=== PATIENT | male | born 1985 | race Caucasian/White ===

== ENCOUNTER 2024-10-17 00:08 | Emergency (ER) | payer BC, SELFPAY ==
[2024-10-17 00:10] VITALS: BP 133/78
--- NOTE | 2024-10-17 00:58 | ED.GENMED ---
History of Present Illness
General
Chief Complaint: Crisis Evaluation
Source: patient
Exam Limitations: none
Time Seen by Provider: 10/17/24 00:20
Nursing documentation reviewed up to this point in time: agreed with
History of Present Illness
History of Present Illness:
39-year-old male presents with nausea vomiting after taking Perc 30s-2 a day for the past few days he believes he poisoned himself, denies alcohol or other drugs, does not sound like they were prescribed to him, triage reports that this was a
suicide attempt, this is not confirmed through my history, he mainly states he feels nauseous now, no jaundice no prior episodes
Past History
Past History
ED Past Medical History: None
ED Past Surgical History: None
Social History
Tobacco: Non-smoker
Alcohol: Occasional
Drug: Narcotics
Living: with family
Review of Systems
Review of Systems
All Other Systems: Not applicable
Respiratory: Denies trouble breathing
Cardiac: Reports no symptoms
ABD/GI: Reports abdominal pain and nausea
Musculoskeletal: Reports no symptoms
Psychiatric: Reports depression, anxiety and suicidal
Phy Exam
Physical Exam
Physical Exam:
Physical Exam
General: 39 male looks uncomfortable but nontoxic,
Neck: No jaundice
Heart: s1/s2 regular rate and rhythm, no murmur. equal radial pulses.
Lungs: no acute respiratory distress. clear bilaterally
Abdomen: Mild epigastric tender
Neuro: alert and oriented. no focal neurological deficits
Skin: no rash
Psychiatric: well kept. interactive and cooperative
Extremities: no edema.
Course
Orders/Labs/Results
Orders:
Orders
10/17/24 00:20
Urine Drug Abuse Screen Urgent
10/17/24 00:21
Crisis Consult Routine
Reason for Consult: od
10/17/24 00:50
Ondansetron Injectable [Zofran] 4 mg .ROUTE .STK-MED ONE
10/17/24 00:52
0.9% Sodium Chloride 1000 ml [Nss] 2,000 ml IV BOLUS
Ondansetron Injectable [Zofran] 4 mg IV NOW STA
Pantoprazole [Protonix IV] 40 mg IV NOW STA
10/17/24 01:22
Acetaminophen Urgent
Alcohol Urgent
Complete Blood Count/With Diff Urgent
Comprehensive Metabolic Panel Urgent
Salicylate Urgent
10/17/24 04:04
Lorazepam [Ativan] 1 mg IV NOW STA
Abnormal Lab Results
10/17/24
01:22
RBC 4.52 L 10^6/uL
(4.70-6.10)
MCH 31.6 H pg
(27.0-31.0)
RDW 11.4 L %
(11.5-14.5)
Absolute Lymphs (auto) 0.9 L 10^3/uL
(1.2-3.4)
Neutrophils % 76.0 H %
(42.2-75.2)
Lymphocytes % 15.3 L %
(20.5-51.1)
Glucose 123 H mg/dl
(70-99)
Total Bilirubin 1.6 H mg/dl
(0.2-1.3)
Salicylates < 1.0 L mg/dl
(2.0-20.0)
Acetaminophen < 10 L ug/ml
(10-30)
10/17/24 01:22
10/17/24 01:22
Vital Signs
Initial and Last Documented VS:
Initial Vital Signs
Temp Pulse Resp BP Pulse Ox
98.0 F 61 16 133/78 96
10/17/24 00:10 10/17/24 00:10 10/17/24 00:10 10/17/24 00:10 10/17/24 00:10
Last Documented Vital Signs
Temp Pulse Resp BP Pulse Ox
98.0 F 59 13 116/72 98
10/17/24 00:10 10/17/24 03:00 10/17/24 02:30 10/17/24 03:00 10/17/24 03:59
MDM/Problems Addressed
Differential Diagnosis Includes:
Toxic ingestion acetaminophen ingestion alcohol gastritis other abdominal,
MDM/Problems Addressed:
Nausea vomiting
*Pulse Oximetry
Patient hypoxic: no
*Critical Care Note
Total Time (30-74mins, 75-104mins- exclusive of procedures): Not Applicable
Update Note
Update Note:
Update history is suspect, will check electrolytes salicylate acetaminophen treat symptomatically
2:15 AM labs are noted telepsych evaluation pending
4:38 AM patient cooperative comfortable appearing, seen by telepsychiatry, outpatient follow-up recommended
Patient is abdomen soft nontender, he is drinking nona johnnie
ED Attending Note
-
Portions of this chart may have been created with voice recognition software.� Occasional wrong word or��sound alike� substitutions may have occurred due to the inherent limitations of voice recognition software.
Discharge Plan
Departure
Patient Disposition: Home (Routine Discharge)
Date of Disposition: 10/17/24
Time of Disposition: 04:39
Patient with high blood pressure during this ER visit?: No
Condition: Good
Discharge Problem:
Anxiety
Instructions: Anxiety, Adult (DC)
Prescriptions:
No Action
Vistaril
75 mg PO HS
Zoloft
100 mg PO DAILY
risperidone
8 mg PO DAILY
Referrals:
NONE,* [Family Provider, Internal Medicine]
Activity Restrictions/Additional Instructions:
Only take medications that are prescribed to you
Follow-up with Abelino Geronimo
Interventions
Interventions:
*Risk Screen - Suicide Last Done: 10/17/24 00:10
*General Assessment Last Done: 10/17/24 01:52
*Neglect/Abuse Screening Last Done: 10/17/24 01:52
*ED- Fall Risk Assessment Last Done: 10/17/24 01:52
*ED COVID-19 Vaccine History Last Done: 10/17/24 03:59
ED-Psychological Assessment Last Done: 10/17/24 01:50
Discharge Date and Time
Print Language: STATELESS
[2024-10-17] MEDS: ZOFRAN 4 MG IV (01:18)
[2024-10-17] MEDS: NSS 2000 IV (01:18)
[2024-10-17 01:21] VITALS: BP 128/75
[2024-10-17 01:31] LABS: % Basophils 0.5 % (0-2); % Eosinophils 0.2 % (0-6); % Immature Granulocytes 0.2 % (0-0.5); % Lymphocytes 15.3 % (20.5-51.1); % Monocytes 7.8 % (1.7-9.3); Absolute Lymphocytes 0.9 10^3/uL (1.2-3.4); Absolute Monocytes 0.5 10^3/uL (0.1-0.6); Absolute Neutrophils 4.5 10^3/uL (1.4-6.5); Hematocrit 39.4 % (39.0-52.0); Hemoglobin 14.3 g/dL (13.0-18.0); Mean Corp Hgb Conc. 36.3 g/dL (33.0-37.0); Mean Corpuscular Hgb 31.6 pg (27.0-31.0); Mean Corpuscular Volume 87.2 fL (80.0-94.0); Mean Platelet Volume 9.8 fL (7.4-10.4); Nucleated Red Blood Cells % 0 % (-); Platelet Count 186 10^3/uL (130-400); Red Blood Cell Count 4.52 10^6/uL (4.70-6.10); Red Cell Dist. Width 11.4 % (11.5-14.5); White Blood Cell Count 5.9 10^3/uL (4.8-10.8)
[2024-10-17] MEDS: PROTONIX IV 40 MG IV (01:32)
[2024-10-17 01:50] LABS: ALT (SGPT) 19 U/L (0-50); AST (SGOT) 20 U/L (17-59); Acetaminophen < 10 ug/ml (10-30); Albumin 4.9 g/dl (3.5-5.0); Alkaline Phosphatase 43 U/L (38-126); Blood Urea Nitrogen 13 mg/dl (9-20); Calcium 9.8 mg/dl (8.4-10.2); Carbon Dioxide 28 mmol/L (22-30); Chloride 104 mmol/L (98-107); Glucose 123 mg/dl (70-99); Potassium 4.1 mmol/L (3.5-5.1); Salicylate < 1.0 mg/dl (2.0-20.0); Sodium 138 mmol/L (135-145); Total Bilirubin 1.6 mg/dl (0.2-1.3); Total Protein 7.5 g/dl (6.3-8.2); eGFR > 60.00
[2024-10-17 01:53] VITALS: BMI 28.1
[2024-10-17 01:53] LABS: Alcohol None Detected
[2024-10-17 02:00] VITALS: BP 125/70
[2024-10-17 03:00] VITALS: BP 116/72
[2024-10-17] MEDS: ATIVAN 1 MG IV (04:08)
== END 2024-10-17 05:30 | disposition home or self-care (01) ==
LOC: EMR 00:08
PROVIDERS: EMERGENCY PHYSICIAN Emergency Medicine
DX: F41.9 Anxiety disorder, unspecified (principal); F32.9 Major depressive disorder, single episode, unspecified; F11.20 Opioid dependence, uncomplicated; R11.2 Nausea with vomiting, unspecified
CPT/HCPCS: 96374; 96375; 96361; 99284; 80053; 80143; 80179; 82077; 85025

== ENCOUNTER 2024-10-31 04:30 | Emergency (ER) | payer BC, SELFPAY ==
[2024-10-31 04:32] VITALS: BP 130/80
[2024-10-31 04:43] VITALS: BMI 28.0
[2024-10-31] MEDS: ZOFRAN 4 MG IV (05:20)
[2024-10-31] MEDS: NSS 1000 IV (05:20)
[2024-10-31 05:30] LABS: % Basophils 0.7 % (0-2); % Eosinophils 0.5 % (0-6); % Immature Granulocytes 0.2 % (0-0.5); % Lymphocytes 16.8 % (20.5-51.1); % Monocytes 8.8 % (1.7-9.3); Absolute Lymphocytes 0.9 10^3/uL (1.2-3.4); Absolute Monocytes 0.5 10^3/uL (0.1-0.6); Absolute Neutrophils 4.1 10^3/uL (1.4-6.5); Hematocrit 38.6 % (39.0-52.0); Hemoglobin 14.1 g/dL (13.0-18.0); Mean Corp Hgb Conc. 36.5 g/dL (33.0-37.0); Mean Corpuscular Hgb 31.8 pg (27.0-31.0); Mean Corpuscular Volume 86.9 fL (80.0-94.0); Mean Platelet Volume 9.3 fL (7.4-10.4); Nucleated Red Blood Cells % 0 % (-); Platelet Count 193 10^3/uL (130-400); Red Blood Cell Count 4.44 10^6/uL (4.70-6.10); Red Cell Dist. Width 11.5 % (11.5-14.5); White Blood Cell Count 5.6 10^3/uL (4.8-10.8)
[2024-10-31 05:50] LABS: ALT (SGPT) 32 U/L (0-50); AST (SGOT) 45 U/L (17-59); Albumin 4.4 g/dl (3.5-5.0); Alkaline Phosphatase 38 U/L (38-126); Blood Urea Nitrogen 14 mg/dl (9-20); Calcium 9.9 mg/dl (8.4-10.2); Carbon Dioxide 26 mmol/L (22-30); Chloride 107 mmol/L (98-107); Estimated Creatinine Clearance 107 ml/min; Glucose 122 mg/dl (70-99); Lipase 47 U/L (23-300); Sodium 140 mmol/L (135-145); Total Bilirubin 1.1 mg/dl (0.2-1.3); eGFR > 60.00
--- NOTE | 2024-10-31 06:10 | ED.GENMED ---
History of Present Illness
General
Chief Complaint: Vomiting Blood
Source: patient
Exam Limitations: none
Time Seen by Provider: 10/31/24 04:54
History of Present Illness
History of Present Illness:
Note:
CHIEF COMPLAINT(S)
Vomiting with blood.
HISTORY OF PRESENT ILLNESS
The patient is a 39-year-old male who presented with vomiting blood. He reports that the vomiting occurs with anything he eats or drinks, stating, 'It just comes right back up with blood.' The patient describes his entire stomach as feeling
constantly painful, saying it feels '.' He states he has not taken any medications for this condition. He notes that he is unable to go to the bathroom due to everything coming back up as vomit. The patient is concerned about the blood in his
vomit, which has ranged from light-colored to dark-colored, indicating a mix of fresh and old blood.
SOCIAL HISTORY
The patient denies smoking cigarettes. He also denies alcohol use or marijuana.
PLAN
The plan includes administering Zofran (an anti-nausea medication) to manage the patient�s nausea and vomiting. A blood test will be conducted to further evaluate the patient�s condition. IV access will be established for treatment.
DIFFERENTIAL DIAGNOSIS
The Differential Diagnosis includes, in no particular order, and is not limited to:
1. Gastrointestinal bleeding
2. Peptic ulcer disease
3. Gastritis
4. Esophageal varices
5. Samara-Sandoval tear
6. Gastroesophageal reflux disease (GERD)
7. Esophageal cancer
8. Gastric cancer
9. Hemorrhagic gastritis
10. Boerhaave syndrome
CARE-UPDATE
10/31/24 - 06:09
Patient requested medication for sleep; plan to administer Benadryl along with Reglan for vomiting management. Abdomen exam reveals softness and non-tenderness, with no hematemesis observed. Hemoglobin levels are normal, and vital signs remain
stable. Arrangements will be made for a follow-up appointment with GI for a possible endoscopy.
Disposition:
SUMMARY OF ENCOUNTER
The patient, a 39-year-old male, was evaluated in the emergency department for vomiting accompanied by blood. He reported that any food or drink intake resulted in vomiting, which contained blood. He described his stomach as consistently painful.
Medications had not been taken prior to the visit. The focus of management was to alleviate the symptoms while further diagnostic steps were considered.
EMERGENCY TREATMENTS ADMINISTERED
The patient was administered Zofran to manage nausea and vomiting.
PLAN
In addition to immediate symptom management with Zofran, further evaluation with a blood test was planned. IV access was established for potential treatments. The patient requested medication for sleep, and Benadryl was planned to be administered.
INDEPENDENT INTERPRETATION OF TESTS
My independent interpretation of the hemoglobin test indicates normal levels, suggesting that the patients current bleeding has not impacted hemoglobin significantly.
FOLLOW-UP INSTRUCTIONS
Arrangements will be made for a follow-up appointment with a gastrointestinal specialist for a possible endoscopy.
MEDICATION RECONCILIATION
Zofran was administered to manage nausea and vomiting. Prescription for additional antiemetic management included reglan.
MEDICAL DECISION MAKING
The patient presented with acute symptoms requiring investigation and management for potential gastrointestinal bleeding. The differential diagnosis included conditions requiring comprehensive evaluation, necessitating both immediate symptom
management and planned further diagnostic workup. Social determinants related to polysubstance abuse or other considerations were not evident, potentially simplifying disposition. However, further gastrointestinal specialist evaluation was deemed
necessary to fully assess underlying conditions and outline a comprehensive management plan.
Past History
Past History
ED Past Medical History: None
ED Past Surgical History: None
Social History
Tobacco: Non-smoker
Alcohol: Occasional
Drug: Narcotics
Living: with family
Phy Exam
Physical Exam
Physical Exam:
Physical Exam
General: no apparent distress, not acutely ill
Neck: supple. no meningeal signs. normal posterior pharynx
Heart: s1/s2 regular rate and rhythm, no murmur. equal radial
pulses.
HEENT: Pupils equal round reactive to light, EOMI
Lungs: no acute respiratory distress. clear bilaterally
Abdomen: normal bowel sounds. not tender. no CVAT
Neuro: alert and oriented. no focal neurological deficits cranial nerves II through XII intact
Skin: no rash
Psychiatric: well kept. interactive and cooperative
Extremities: no edema. no calf tenderness. negative homans. good distal pulses
Course
Orders/Labs/Results
Orders:
Orders
10/31/24 05:07
IV Insert/Care/Rem.- Treatment PRN
0.9% Sodium Chloride 1000 ml [Nss] 1,000 ml IV BOLUS
10/31/24 05:09
Ondansetron Injectable [Zofran] 4 mg IV NOW STA
10/31/24 05:19
Complete Blood Count/With Diff Urgent
Comprehensive Metabolic Panel Urgent
Lipase Urgent
10/31/24 06:06
Diphenhydramine [Benadryl] 25 mg IV NOW STA
Metoclopramide [Reglan] 10 mg IV NOW STA
Abnormal Lab Results
10/31/24
05:19
RBC 4.44 L 10^6/uL
(4.70-6.10)
Hct 38.6 L %
(39.0-52.0)
MCH 31.8 H pg
(27.0-31.0)
Absolute Lymphs (auto) 0.9 L 10^3/uL
(1.2-3.4)
Lymphocytes % 16.8 L %
(20.5-51.1)
Glucose 122 H mg/dl
(70-99)
10/31/24 05:19
10/31/24 05:19
Vital Signs
Initial and Last Documented VS:
Initial Vital Signs
Temp Pulse Resp BP Pulse Ox
98.2 F 69 18 130/80 98
10/31/24 04:32 10/31/24 04:32 10/31/24 04:32 10/31/24 04:32 10/31/24 04:32
Last Documented Vital Signs
Temp Pulse Resp BP Pulse Ox
98.2 F 69 18 130/80 98
10/31/24 04:32 10/31/24 04:32 10/31/24 04:32 10/31/24 04:32 10/31/24 04:32
*Critical Care Note
Total Time (30-74mins, 75-104mins- exclusive of procedures): Not Applicable
ED Attending Note
-
Portions of this chart may have been created with voice recognition software.� Occasional wrong word or��sound alike� substitutions may have occurred due to the inherent limitations of voice recognition software.
Discharge Plan
Departure
Patient Disposition: Home (Routine Discharge)
Date of Disposition: 10/31/24
Time of Disposition: 06:14
Patient with high blood pressure during this ER visit?: Yes
Condition: Good
Discharge Problem:
Hematemesis of unknown cause
Instructions: Nausea and Vomiting, Adult (DC), GI bleed - Discharge instructions, BLOOD PRESSURE
Prescriptions:
New
metoclopramide HCl [Reglan] 10 mg tablet
10 mg PO Q6H PRN (Reason: nausea and vomiting) Qty: 10 0RF
No Action
Vistaril
75 mg PO HS
Zoloft
100 mg PO DAILY
risperidone
8 mg PO DAILY
Referrals:
NONE,* [Family Provider, Internal Medicine]
Interventions
Interventions:
*Risk Screen - Suicide Last Done: 10/31/24 04:32
*General Assessment Last Done: 10/31/24 04:32
*Neglect/Abuse Screening Last Done: 10/31/24 04:32
*ED COVID-19 Vaccine History Last Done: 10/31/24 04:32
[facility] Assessment Last Done: 10/31/24 04:44
ED- Cardiac Assessment Last Done: 10/31/24 04:44
ED- Pulmonary Assessment Last Done: 10/31/24 04:44
Discharge Date and Time
Print Language: [place]
[2024-10-31] MEDS: REGLAN 10 MG IV (06:11)
[2024-10-31] MEDS: BENADRYL 25 MG IV (06:11)
[2024-10-31] MEDS: XANAX 0.5 MG PO (06:53)
== END 2024-10-31 06:57 | disposition home or self-care (01) ==
LOC: EMR 04:30
PROVIDERS: EMERGENCY PHYSICIAN Emergency Medicine
DX: K92.0 Hematemesis (principal)
CPT/HCPCS: 96374; 96375; 99284; 80053; 83690; 85025